=== PATIENT | male | born 1940 ===

== ENCOUNTER 2024-10-13 14:50 | Inpatient (IN) | payer OTHER, SELFPAY ==
[2024-10-13] VITALS (11 sets, daily range): BP systolic 111–139; BP diastolic 70–97; BMI 28.2; BMI 28.5
[2024-10-13 10:33] LABS: Hematocrit 39.7 % (39.0-52.0); Hemoglobin 13.1 g/dL (13.0-18.0); Mean Corp Hgb Conc. 33.0 g/dL (33.0-37.0); Mean Corpuscular Volume 85.6 fL (80.0-94.0); Nucleated Red Blood Cells % 0 % (-); Platelet Count 168 10^3/uL (130-400); Red Cell Dist. Width 14.4 % (11.5-14.5)
[2024-10-13 10:52] LABS: ALT (SGPT) 20 U/L (0-50); AST (SGOT) 23 U/L (17-59); Albumin 4.4 g/dl (3.5-5.0); Alkaline Phosphatase 66 U/L (38-126); Blood Urea Nitrogen 19 mg/dl (9-20); Calcium 9.7 mg/dl (8.4-10.2); Carbon Dioxide 22 mmol/L (22-30); Chloride 112 mmol/L (98-107); Estimated Creatinine Clearance 61 ml/min; Glucose 97 mg/dl (70-99); Potassium 4.3 mmol/L (3.5-5.1); Sodium 141 mmol/L (135-145); Total Protein 7.3 g/dl (6.3-8.2); eGFR > 60.00
[2024-10-13 10:53] LABS: INR 1.01; PT 13.8 Sec (11.4-14.6)
--- NOTE | 2024-10-13 11:04 | ED.GENMED ---
History of Present Illness
General
Chief Complaint: Cardiac Symptoms
Source: patient and family (Daughter)
Exam Limitations: none
Time Seen by Provider: 10/13/24 10:53
History of Present Illness
History of Present Illness:
84-year-old male some dry cough increase shortness of breath over the last week. Much worse the last few nights. Some intermittent chest pressure also. Symptoms are minimal currently. No weight change.
Past History
Past History
ED Past Medical History: Arrthythmia, HTN and Hypercholesterolemia
Phy Exam
Physical Exam
Physical Exam:
GENERAL: Alert and oriented in no apparent distress
EYE: Orbits normal.
NECK: Supple, no thyroid palpable
ENT: Pharynx without erythema
CARDIAC: Irregular irregular no murmur
LUNGS: Rales in both bases. No wheezing. No respiratory distress
ABDOMEN: Soft, without focal tenderness or distention
NEUROLOGICAL: Alert and oriented , grossly non-focal
SKIN: Warm and dry, no rash or lesion, no discoloration, skin intact.
MUSCULOSKELETAL: No edema,no deformity.Good color
PSYCH: Normal and appropriate interaction.
Course
Orders/Labs/Results
Orders:
Orders
10/13/24 09:51
Electrocardiogram (*1) Urgent
Reason for Study: Chest Pain
EKG- Treatment ONCE
10/13/24 10:24
Complete Blood Count/With Diff Urgent
Comprehensive Metabolic Panel Urgent
Pro-BNP [NT-proBNP] Urgent
Prothrombin Time Urgent
Troponin I Urgent
10/13/24 11:16
CXR2 [CR Chest - 2 Views ] Urgent
Comment:
Reason For Exam: sob
10/13/24 12:01
Furosemide [Lasix] 40 mg IV NOW STA
Abnormal Lab Results
10/13/24
10:24
RBC 4.64 L 10^6/uL
(4.70-6.10)
Lymphocytes % 20.1 L %
(20.5-51.1)
Monocytes % 9.6 H %
(1.7-9.3)
Chloride 112 H mmol/L
(98-107)
Total Bilirubin 1.5 H mg/dl
(0.2-1.3)
Troponin I 0.057 H* ng/ml
10/13/24 10:24
10/13/24 10:24
Vital Signs
Initial and Last Documented VS:
Initial Vital Signs
Temp Pulse Resp BP Pulse Ox
98.4 F 53 16 128/94 95
10/13/24 09:56 10/13/24 09:56 10/13/24 09:56 10/13/24 09:56 10/13/24 09:56
Last Documented Vital Signs
Temp Pulse Resp BP Pulse Ox
98.4 F 82 24 121/88 95
10/13/24 09:56 10/13/24 13:00 10/13/24 13:00 10/13/24 13:00 10/13/24 13:00
*Radiology
Radiology exam reviewed: radiology read reviewed (Increased vascular congestion. Small effusion. Pulmonary vasculature top normal)
*Pulse Oximetry
SaO2: 94
Oxygen Mode of Delivery: Room air
Patient hypoxic: no
*EKG
Interpreted by ED Provider?: Yes
Interpretation: abnormal
Comparison EKG: changes noted
Heart Rate: 80
Rate: normal
Rhythm: atrial flutter
[place]: left axis deviation
Interval: normal interval
QRS Pattern: poor R-wave progression
Ischemia: non-specific ST changes
*Critical Care Note
Total Time (30-74mins, 75-104mins- exclusive of procedures): Not Applicable
ED Attending Note
-
Portions of this chart may have been created with voice recognition software.� Occasional wrong word or��sound alike� substitutions may have occurred due to the inherent limitations of voice recognition software.
Discharge Plan
Departure
Patient Disposition: Admit
Date of Disposition: 10/13/24
Time of Disposition: 12:37
Presentation/result/management discussed w/ accepting MD/DO: Cardiology
Discharge Problem:
CHF, New onset atrial flutter
Prescriptions:
No Action
lisinopril 20 mg tablet
20 mg PO DAILY
amlodipine 5 mg tablet
5 mg PO QPM
tamsulosin 0.4 mg capsule
0.4 mg PO BID
aspirin 81 mg Tablet,Chewable
81 mg PO QPM
metoprolol succinate 25 mg tablet extended release 24 hr
25 mg PO DAILY
omega 7-rsi-aqh-fish oil [Fish Oil] 60-90-500 mg Capsule
1 cap PO DAILY
Referrals:
Tenisha Urrutia MD [Family Provider]
Interventions
Interventions:
*Risk Screen - Suicide Last Done: 10/13/24 10:27
*General Assessment Last Done: 10/13/24 10:25
*Neglect/Abuse Screening Last Done: 10/13/24 10:27
*ED- Fall Risk Assessment Last Done: 10/13/24 10:25
*ED COVID-19 Vaccine History Last Done: 10/13/24 10:25
ED- Pulmonary Assessment Last Done: 10/13/24 10:27
ED- Cardiac Assessment Last Done: 10/13/24 10:27
Discharge Date and Time
Print Language: URUGUAYAN
[2024-10-13 11:07] LABS: Troponin I 0.057 ng/ml
[2024-10-13] MEDS: LASIX 40 MG IV (12:08)
--- NOTE | 2024-10-13 13:03 | W.PN.UPDATE ---
Update Note
Progress Note Update
This note serves as an addendum to the H&P by Kenzie Thompson
�
HPI
84M Non [place] Citizen Wolof speaker, with [place] Citizen speaker Daughter in Law No prior HX at , PMHX Arrhythmia, HTN and Hypercholesterolemia seen at ER:
- reports dry cough
- increase shortness of breath over the last week. Much worse the last few nights.
- Some intermittent chest pressure also.
- Symptoms are minimal currently.
- No weight change.
Relevant VS:
10/13/24
09:56 10/13/24
10:19
Temp 98.4 F
Pulse 53 83
Blood pressure 128/94
SaO2 95
Oxygen Mode of Delivery Room air
PE
Gen: no apparent distress
HEENT: anicteric
Neck: supple , Not noticed JVD
Lungs: Rales in both bases
Cor: Irregular irregular no murmur
Abdomen:� Soft, without focal tenderness or distention
GAS APPLIANCE ADJUSTER: AAO3
MS:b/l Jesus Alberto edema
Psych: Appropriate
Relevant Data
10/13/24
10:24
WBC 5.9
Hgb 13.1
Plt Count 168
INR 1.01
Chloride 112 H
BUN 19
Creatinine 0.8
eGFR > 60.00
Total Bilirubin 1.5 H
Troponin I 0.057 H*
Yny-E-Zeiksremvas Pept 5000
CXR
- Right basilar opacification at least in part suggesting small right pleural effusion.
- Minor left basilar opacification suggesting subsegmental atelectasis and/or scarring.
- Pulmonary vascularity at least top normal.
EKG
ATRIAL FLUTTER WITH VARIABLE A-V BLOCK WITH PREMATURE VENTRICULAR OR
ABERRANTLY CONDUCTED COMPLEXES
LEFT AXIS DEVIATION
INCOMPLETE LEFT BUNDLE BLOCK
MINIMAL VOLTAGE CRITERIA FOR LVH, MAY BE NORMAL VARIANT ( Cody product )
NONSPECIFIC T WAVE ABNORMALITY
ABNORMAL ECG
NO PREVIOUS ECGS AVAILABLE
Confirmed by MD MIKY, JIHAN Haque ([id number]) on 10/13/2024 11:17:09 AM
04/29/22 TTE
LVEF 65%
Grade 1 diastolic dysfunction.
Normal right ventricular size and function.
Mild left atrial enlargement.
Normal right atrium.
Estimated pulmonary artery pressure assessment was not possible.
Structurally normal pulmonic valve without significant stenosis or regurgitation.
Normal pericardium without effusion.
Normal aortic root @ 4.0 cm.
IVC not well seen.
NO PRIOR hospitalist admission:
ASSESSMENT & PLAN
Acute HF
Suspect acute diastolic CHF +/_ systolic HF
- last ECHO on records was in 2022
- in A Flutter
- Elevated proBNP
- IV Lasix 40 daily
- c/w PHYSICIANS ASSISTANT Metoprolol XL + Lisinopril
- Daily BMP
- Daily IOs, Wt
- ECHO
- CBC card consulted by ER
A Flutter
- controlled VR on Metoprolol XL
- Likely 2/2 AHF
- Defer AC to Card
- await card evalaution
Elevated TPNI
- suspect NIMI due to acute HF and A Fluuter
- Trend TPNI
- c/w PHYSICIANS ASSISTANT ASA + Statin
- ECHO for WMAL
- await Card evaluation for future ischemic evalautation
Normotensive
Essential HTN
- c/w PHYSICIANS ASSISTANT Amlodipine + Lisinopril
BPH
- on Tamsulosin
DVT Px: LMWH
Full Code
IP TLM
--- NOTE | 2024-10-13 14:09 | HPS.HSE ---
Family Physician
-
Family Physician: Tenisha Urrutia MD
Chief Complaint
-
Worsening SOB, fatigue, cough
History of Present Illness
84 year old male with history of HTN, hypercholesterolemia, CAD, Dilated aortic root, GERD, bilateral knee Osteoarthritis, BPH, who presents with non-productice cough, worsening shortness of breath, chest tightness, intermittent palpitations, poor
sleep and tiredness. He does have trace LE extremity edema at baseline, but daughter reports it may have looked slightly worse earlier today. He is here with daughter in-law who provides most of his medical history.
Denies any history of arrhythmia or heat failure. CAD history from history of abnormal stress test. He denies fever/chills, nausea/vomiting, abdominal or bowel/bladder concerns. He does not check his weight regularly at home, but states that he is
usually around 77kg
Medical History
Past Medical History
Past Medical History: Reports CAD, GERD, HTN, Hypercholesterolemia and Other (BPH, Dilated aortic root, bilateral knee osteoarthritis); Denies Arrhythmia or CHF
Past Surgical History: Reports Other (hernia repair, carpal tunnel repair)
Social History
Tobacco: Non-smoker
Alcohol: Occasional
Living: With Family
Family History
Family History: Not pertinent
Allergies / Home Medications
Allergies reflects when Allergies were last updated in [facility].
Home Medications with original date entered in [facility]
Allergy/Medication List:
Allergies
Allergy/AdvReac Type Severity Reaction Status Date / Time
No Known Allergies Allergy Verified 10/13/24 09:59
Home Medications
amlodipine 5 mg tablet 5 mg PO QPM 10/13/24
aspirin 81 mg chewable tablet 81 mg PO QPM 10/13/24
lisinopril 20 mg tablet 20 mg PO DAILY 10/13/24
metoprolol succinate 25 mg tablet,extended release 24 hr 25 mg PO DAILY 10/13/24
omega 1-edq-rge-fish oil 60 mg-90 mg-500 mg capsule (Fish Oil) 1 cap PO DAILY 10/13/24
tamsulosin 0.4 mg capsule 0.4 mg PO BID 10/13/24
Review of Systems
-
History Source: Patient and Family (daughter za)
Constitutional: Reports Fatigue; Denies Fever, Weight Gain, Night Sweats or Chills
Respiratory: Reports Cough and Trouble Breathing; Denies Hemoptysis
Cardiac: Reports Palpitations (intermittent) and Other (chest tightness); Denies Chest Pain or Diaphoresis
Abdomen/GI: Denies Abdominal Pain, Nausea, Vomiting or Diarrhea
: Denies Dysuria, Difficulty Voiding or Bleeding
Musculoskeletal: Reports Edema (lower extremity)
Physical Exam
Vital Signs
Vital Signs
Temp Pulse Resp BP Pulse Ox
98.4 F 82 24 121/88 95
10/13/24 09:56 10/13/24 13:00 10/13/24 13:00 10/13/24 13:00 10/13/24 13:00
Physical Exam
General: Well Developed, Well Nourished, No Apparent Distress, Comfortable and Conversant; No Fever or Sweats
HEENT: NormoCephalic, Anicteric, Moist mucous membranes and Atraumatic
Respiratory: Crackles (bibasilar) and Non Labored Respirations; No Wheezes, Rales or Rhonchi
Cardiac: S1/S2, Irregular Rhythm and Other (regular rate); No Murmur, Rub or Gallop
GI: Soft, Non Tender, Non Distended and Normal Bowel Sounds
Genito-urinary: No costovertebral tender
Musculoskeletal: No Clubbing, No Cyanosis and No Edema
Skin: Warm and Dry
Neuro: Awake, Alert and Oriented
Psych: Calm
Laboratory Results
-
10/13/24 10:24
10/13/24 10:24
Laboratory Results
PT 13.8 Sec (11.4-14.6) 10/13/24 10:24
INR 1.01 10/13/24 10:24
Total Bilirubin 1.5 mg/dl (0.2-1.3) H 10/13/24 10:24
AST 23 U/L (17-59) 10/13/24 10:24
ALT 20 U/L (0-50) 10/13/24 10:24
Alkaline Phosphatase 66 U/L (38-126) 10/13/24 10:24
Troponin I 0.057 ng/ml H* 10/13/24 10:24
Impression/Plan
-
IMPRESSION:
84 year old male with history of HTN, hypercholesterolemia, CAD, Dilated aortic root, GERD, bilateral knee Osteoarthritis, BPH, who presents with acute CHF exacerbation and new onset Afib/aflutter
PLAN:
Acute CHF exacerbation:
proBNP 5000
- Pt received lasix 40mg IV lasix in Ed with good response. Continue 40mg lasix daily
- Most recent echo in april 2022 with EF 65% with grade 1 diastolic dysfunction. Repeat echo
- Admit to tele
- Track IandOs, daily weights, fluid restriction
- Cards consult
New onset afib/aflutter:
- Rate controlled. Pt on metoprolol sux 25 daily.
- Check TSH
- Unclear if due to CHF exacerbation if CHF exacerbation caused by arrhythmia
- Cards consult
- Case management consult for tentative Eliquis pricing. [id number]
Non-ischemic myocardial injury:
Secondary to CHF exacerbation
- Trop 0.057
- Trend trop
- Repeat EKG
Dilated aortic root:
- Per pt, stable at 4.5cm. Will repeat echo
Essential hypertension:
- Continue home antihypertensives: Metoprolol, Amlodipine, Lisinopril
CAD:
Hypercholesterolemia:
History of abnormal stress test:
- Continue Atorvastatin, Asp 81
BPH:
- No acute retention. continue Tamsulosin BID
Bilateral knee osteoarthritis:
- Stable
GERD
DVT ppx: Lovenox
Code status: full Code
[2024-10-13 15:38] LABS: Troponin I 0.059 ng/ml
--- NOTE | 2024-10-13 17:33 | PTCARENOTE ---
pt brought up from the Ed to this RN. pt is a standing scale daily wt. walked into the room from the stretcher with no assistive devices and daughter is staying at the bedside for translation.
[2024-10-13] MEDS: NORVASC 5 MG PO (18:33)
[2024-10-13] MEDS: LOW STRENGTH ASPIRIN 81 MG PO (18:33)
[2024-10-13] MEDS: LOVENOX 40 MG SC (18:34)
[2024-10-13] MEDS: FLOMAX 0.4 MG PO (20:12)
[2024-10-13] MEDS: LIPITOR 20 MG PO (21:15)
[2024-10-13 21:38] LABS: Troponin I 0.061 ng/ml
[2024-10-14] VITALS (9 sets, daily range): BP systolic 90–125; BP diastolic 53–83; PULSE 62–65; O2SAT 95–96; BMI 28.4
[2024-10-14 03:29] LABS: Hematocrit 38.8 % (39.0-52.0); Hemoglobin 13.0 g/dL (13.0-18.0); Mean Corp Hgb Conc. 33.5 g/dL (33.0-37.0); Mean Corpuscular Volume 85.1 fL (80.0-94.0); Platelet Count 150 10^3/uL (130-400); Red Cell Dist. Width 14.5 % (11.5-14.5)
[2024-10-14 03:54] LABS: Blood Urea Nitrogen 21 mg/dl (9-20); Calcium 9.3 mg/dl (8.4-10.2); Carbon Dioxide 23 mmol/L (22-30); Chloride 111 mmol/L (98-107); Estimated Creatinine Clearance 61 ml/min; Glucose 92 mg/dl (70-99); Magnesium 2.0 mg/dl (1.6-2.3); Potassium 3.8 mmol/L (3.5-5.1); Sodium 141 mmol/L (135-145); eGFR > 60.00
[2024-10-14 04:33] LABS: Troponin I 0.063 ng/ml
[2024-10-14 07:22] LABS: Troponin I 0.061 ng/ml
--- NOTE | 2024-10-14 07:25 | W.PN.HOSP.TC ---
Today's Communication/Plan
-
Pending echocardiogram
Assessment / Plan
Assessment / Plan
Impression:
84 year old male with history of HTN, hypercholesterolemia, CAD, Dilated aortic root, GERD, bilateral knee Osteoarthritis, BPH, who presents with non-productice cough, worsening shortness of breath, chest tightness, intermittent palpitations, poor
sleep and tiredness. Noted to have a flutter in the ER and admitted for CHF exacerbation.
Seen by cardiology.
Patient received IV Lasix, and started on Eliquis by cardiology, metoprolol XL.
Heart rate improved
Assessment/plan:
Acute CHF Exacerbation:
Patient has acute on chronic diastolic congestive heart failure
Patient presented with shortness of breath.
proBNP 5000
Troponin level is 0.061
Continue IV diuresing in form of Lasix 40 mg twice daily
Daily weight.
Strict I's and O's.
Consulted cardiology.
Most recent echo in april 2022 with EF 65% with grade 1 diastolic dysfunction. Repeat echo
New onset afib/aflutter:
- Rate controlled. Pt on metoprolol sux 25 daily.
-TSH 1.86
- Continue metoprolol and started Eliquis
Non-ischemic myocardial injury:
Secondary to CHF exacerbation
- Trop 0.057
- Trend trop
Troponins
10/13/24 10/13/24 10/14/24
15:08 21:01 03:22
Troponin I 0.059 H* 0.061 H* 0.063 H*
10/14/24
06:42
Troponin I 0.061 H*
Dilated aortic root:
- Per pt, stable at 4.5cm. Will repeat echo
Essential hypertension:
- Continue home antihypertensives: Metoprolol, Amlodipine, Lisinopril
CAD:
Hypercholesterolemia:
History of abnormal stress test:
- Continue Atorvastatin, continue aspirin since we started Eliquis
BPH:
- No acute retention. continue Tamsulosin BID
Bilateral knee osteoarthritis:
- Stable
CODE STATUS: Full code
DVT prophylaxis: Lovenox
Diet: Regular diet
Family communication: Discussed with [id number] at bedside.
Disposition: Pending echo
Total time spent on today's encounter was 65 minutes which included time spent in counseling the patient/family regarding diagnosis and treatment plan as listed above, goals of care, and symptom management. Case was discussed with nursing staff,
specialists, and care coordinators/case management. All labs and imaging personally reviewed by me. Remainder the time spent in detailed review of previous records, lab data, imaging, and other medical provider documentation.
Anticipated Discharge: Within 24 hours
Subjective/Interval History
-
Date of Service: October 14, 2024
Patient seen and examined at bedside, denies any chest pain or shortness of breath, no abdominal pain, no nausea, no vomiting, no diarrhea or constipation.
Objective Data
-
Labs:
Laboratory Results
10/14/24
03:22
WBC 5.7
Hgb 13.0
Hct 38.8 L
Plt Count 150
Sodium 141
Potassium 3.8
Chloride 111 H
Carbon Dioxide 23
BUN 21 H
Creatinine 0.8
Glucose 92
Calcium 9.3
Vital Signs:
Vital Signs
Temp Pulse Resp BP Pulse Ox
98.4 F 77 18 123/82 94
10/14/24 03:14 10/14/24 03:14 10/14/24 03:14 10/14/24 03:14 10/14/24 03:14
I&O
10/13/24 10/14/24 10/15/24
06:59 06:59 06:59
Intake Total 480 / 480
Balance 480 / 480
Physical Exam
-
General: Well Developed, Well Nourished, No Apparent Distress and Comfortable
HEENT: Normocephalic, Atraumatic, Moist Mucous Membranes, No Ptosis, PERRLA and Nose Appears Normal
Respiratory: Clear to Auscultation and Non Labored Respirations
Cardiac: Regular Rhythm and S1/S2
Breast: Deferred by me
GI: Soft, Nontender, Nondistended and Normal Bowel Sounds
Genito-urinary: No Costovertebral Tender
Musculoskeletal: No Clubbing, No Cyanosis and No Edema
Skin: Warm
Neuro: Awake, Alert, Oriented, AO x 3 and No Motor Deficits
Psych: Calm
Data Reviewed
-
Diagnostic Radiology: Image personally visualized and interpreted and Report Reviewed by me
CT Scan: Image personally visualized and interpreted and Report Reviewed by me
Ultrasound: Image personally visualized and interpreted and Report Reviewed by me
MRI: Image personally visualized and interpreted and Report Reviewed by me
Medical Tests (Nuc Med, Echo etc): Image personally visualized and interpreted and Report Reviewed by me
Labs: Labs Reviewed by me
Old Records: Reviewed
[2024-10-14] MEDS: FLOMAX 0.4 MG PO ×2 (07:59→20:10)
[2024-10-14] MEDS: TOPROL XL 25 MG PO (07:59)
[2024-10-14] MEDS: ZESTRIL 20 MG PO (08:01)
[2024-10-14] MEDS: LASIX 40 MG IV ×2 (08:02→17:15)
--- NOTE | 2024-10-14 08:43 | CON.CAR ---
Addendum entered and electronically signed by Gilberto Ennis MD 10/14/24 12:09:
I saw and evaluated the patient, and I provided the substantive portion of the medical decision making.
I reviewed and agree with the note by Surekha Simon and it accurately reflects our care.
I personally performed the medical decision making of the this encounter and my assessment and plan is below:
Patient is Azeri speaking but refused official court interpreter rather he wished as to use his daughter. 84-year-old gentleman with a past medical history of hypertension, BPH who presented with increased shortness of breath and palpitations for a week. He was
noted to be in new atrial flutter. Currently, he is feeling much improved and would like to go home. On exam, JVP is still elevated at about 12 cm of H2O, irregularly irregular rate and rhythm, lungs were clear to auscultation bilaterally and
trace edema bilaterally. EKG showed atrial flutter with variable block, left anterior fascicular block.
Heart failure unknown EF: Continue IV diuresis with intensive monitoring. Suspect arrhythmia as the etiology. Will check echocardiogram. GDMT as indicated.
Atrial flutter: Persistent: Rate controlled on current medications. Likely the etiology of heart failure. Will arrange for KASSIDY cardioversion tomorrow once volume status is optimized. Will start Eliquis 5 mg twice a day. Case management consult
placed. CHADS2 Vasc 4, do not believe CAD is truly present. Will request records. Regardless DOAC indicated.
Hypertension: Stable
Abnormal troponin: Nonischemic myocardial injury in the setting of CHF and atrial arrhythmia.
Will follow. Likely discharge tomorrow after procedure.
persistent
For TIME:
I saw and evaluated the patient in coordination with the advanced practice provider [ ] and agree with their note.
I spent a total of [ ] minutes (including overlapping time with [ ]. I [did/did not] spend more than half of the total time of the visit.
Total visit time [ ] (total attending time and [ ] WEB CONTENT COORDINATOR unique time).
Comment:
Original Note:
Consultation
Consultation Request
Date/Time Consultation Requested: 10/13/24 1727
Date/Time Consultation Performed: 10/14/24 0843
Requesting Provider: Kenzie Thompson
Performing Provider: Surekha COREAS for Dr. Ennis
Reason for Consultation: CHF
Medical History
-
Chief Complaint: SOB
History of Present Illness:
84 y/o male (cardiology patient of [facility]- wants to follow with us after d/c) with hypertension, BPH, suspected CAD with hx abnormal stress test per chart- never cathed, and most recent stress 2023 normal, dilated aortic root (4.5 cm per chart),
dyslipidemia, GERD who is here for SOB, cough, fatigue, chest tightness, and palpitations x 1 week. Symptoms worse with exertion and bending. He is admitted for CHF and new atrial flutter. He is feeling better with diuresis. No distress at the time
of my assessment. Daughter is at bedside and helps with translation as patient is not Serbian speaking.
Past Medical History
Past Medical History: CAD, GERD, HTN, Hypercholesterolemia and Other (as above)
Social History
Tobacco: Non-Smoker
Family History
Family History: Reviewed & Not Pertinent
Allergies / Home Medications
Allergy/AdvReac Type Severity Reaction Status Date / Time
No Known Allergies Allergy Verified 10/13/24 09:59
�Medication �Instructions �Recorded �Confirmed �Type
amlodipine 5 mg tablet 5 mg PO QPM Blood Pressure 10/13/24 10/13/24 History
aspirin 81 mg chewable tablet 81 mg PO QPM Blood Clot 10/13/24 10/13/24 History
Prevention/Tx
atorvastatin 20 mg tablet (Lipitor) 20 mg PO HS High Cholesterol 10/13/24 10/13/24 History
lisinopril 20 mg tablet 20 mg PO DAILY Blood Pressure 10/13/24 10/13/24 History
metoprolol succinate 25 mg 25 mg PO DAILY Blood Pressure 10/13/24 10/13/24 History
tablet,extended release 24 hr
omega 9-lkg-jgr-fish oil 60 mg-90 1 cap PO DAILY Supplement 10/13/24 10/13/24 History
mg-500 mg capsule (Fish Oil)
tamsulosin 0.4 mg capsule 0.4 mg PO BID Urinary Issue 10/13/24 10/13/24 History
Review of Systems
-
History Source: Patient
All other systems: Negative unless noted
Constitutional: Fatigue
Respiratory: Cough and Trouble Breathing
Cardiac: Chest Pain
Physical Exam
Vital Signs
Temp Pulse Resp BP Pulse Ox
97.9 F 86 18 119/83 93
10/14/24 07:00 10/14/24 07:59 10/14/24 07:00 10/14/24 07:59 10/14/24 08:08
Lab Results
10/14/24 03:22
10/14/24 03:22
Troponin I 0.061 ng/ml H* 10/14/24 06:42
Tlc-R-Vteslcltmnx Pept 5000 pg/ml 10/13/24 10:24
Physical Exam
General: Well Developed, Well Nourished and No Apparent Distress
HEENT: Normocephalic and Anicteric
Respiratory: Clear and Non Labored Respirations
Cardiac: Irregular Rhythm and Peripheral Edema (mild BLE edema)
Skin: Warm and Dry
Neuro: Awake and Alert
Psych: Calm
Impression / Plan
-
Atrial flutter, type and onset unknown:
-new diagnosis. Rate-controlled. Continue metoprolol.
-[id number] score is 5 for age, hypertension, suspected CAD per OP chart, and CHF. Eliquis is being priced- Will start Eliquis 5 mg PO BID. Stop aspirin.
-check echo and if normal EF, plan for KASSIDY and CV in AM after more diuresis
Acute HF, type unknown:
-last echo showed preserved EF- update echo today
-increase IV lasix to BID. This requires intensive monitoring. Will give some potassium as well.
Abnormal troponin:
-suspected acute, non-ischemic myocardial injury in setting of CHF
-checking echo
Hypertension:
-stable
-continue meds and monitor
Suspected CAD, hx abnormal stress test per OP chart:
-continue statin, stop ASA with Eliquis
Data Reviewed
-
EKG: Tracing Personally Visualized and interpreted (Aflutter 87 BPM, PVC's)
Radiology: Report Reviewed by me (CXR: Right basilar opacification at least in part suggesting small right pleural effusion. Minor left basilar opacification suggesting subsegmental atelectasis and/or scarring. Pulmonary vascularity at least top
normal.)
Medical Tests (Nuc Med, Echo etc): Report Reviewed by me (Echo 04/29/22: EF 65 %. Grade 1 diastolic dysfunction. Normal aortic root @ 4.0 cm. )
Labs: Labs Reviewed by me
--- NOTE | 2024-10-14 10:24 | PTOTSP ---
Pt admitted with CHF and afib/aflutter. Presents to OT at independent level with basic self care, transfers and functional mobility in room and bathroom without AD. Provided education (through daughter in law's translation) in energy conservation
and work simplification strategies. No further skilled OT indicated at this time.
[2024-10-14] MEDS: KCL 40 MEQ PO (11:28)
[2024-10-14] MEDS: ELIQUIS 5 MG PO ×2 (11:29→20:10)
--- NOTE | 2024-10-14 13:14 | CM ---
Addendum entered by Pernell Roman 10/14/24 14:46:
ANA M Gimenez spoke to [facility] who said it would be zero copy for 60 tables BID for 30 days. Medical Team aware now to send over the script eletronically when it is needed.
Addendum entered by Pernell Roman 10/14/24 14:07:
Initial Assessment Completed by ANA M Gimenez.
Patient lives in a single 2 story home with his son, daughter in law Hannah (who is present today), their 2 childrend, and his . There is 1 step to enter in from the garage and about 20 steps inside.
Patient uses no DME or respiratory devices at home nor has he been to a SNF or had Home Care Services of any type.
PCP: Dr. Tenisha Urrutia and uses [facility]: [address] [place] [address]; [phone]
Medical Team asked that we find out if Eliquis 5mg is covered under his insurance. Dtr-in Law said that he has never been on this medication. ANA M Gimenez awaiting a script.
Original Note:
Patient was having an Echo so will return shorty.
[2024-10-14] MEDS: NORVASC PO (17:06)
--- NOTE | 2024-10-14 17:13 | PTCARENOTE ---
BP at 1500 vitals was 90/52, upon recheck 106/68. Pt scheduled to get standing dose of norvasc and 40 lasix at this time. This RN made MD aware, MD asking to give lasix and hold norvasc. See MAR, no new orders at this time.
[2024-10-14] MEDS: LIPITOR 20 MG PO (20:10)
[2024-10-15 03:21] VITALS: BP 103/62
[2024-10-15 06:00] VITALS: BMI 27.9
[2024-10-15 07:02] VITALS: BP 121/75
[2024-10-15] MEDS: ELIQUIS 5 MG PO (08:02)
[2024-10-15] MEDS: ZESTRIL 20 MG PO (08:02)
[2024-10-15] MEDS: TOPROL XL PO (08:03)
[2024-10-15] MEDS: FLOMAX 0.4 MG PO (08:03)
[2024-10-15] MEDS: LASIX 40 MG IV (08:03)
[2024-10-15 08:57] LABS: Blood Urea Nitrogen 29 mg/dl (9-20); Calcium 9.3 mg/dl (8.4-10.2); Carbon Dioxide 26 mmol/L (22-30); Chloride 107 mmol/L (98-107); Estimated Creatinine Clearance 49 ml/min; Glucose 95 mg/dl (70-99); Potassium 3.9 mmol/L (3.5-5.1); Sodium 140 mmol/L (135-145); eGFR > 60.00
[2024-10-15 09:22] LABS: Hematocrit 42.3 % (39.0-52.0); Hemoglobin 14.1 g/dL (13.0-18.0); Mean Corp Hgb Conc. 33.3 g/dL (33.0-37.0); Mean Corpuscular Volume 85.5 fL (80.0-94.0); Platelet Count 185 10^3/uL (130-400); Red Cell Dist. Width 14.4 % (11.5-14.5)
--- NOTE | 2024-10-15 09:39 | W.PN.HOSP.TC ---
Today's Communication/Plan
-
Cardioversion today.
Discharge home if cleared by cardio
Assessment / Plan
Assessment / Plan
Impression:
84 year old male with history of HTN, hypercholesterolemia, CAD, Dilated aortic root, GERD, bilateral knee Osteoarthritis, BPH, who presents with non-productice cough, worsening shortness of breath, chest tightness, intermittent palpitations, poor
sleep and tiredness. Noted to have a flutter in the ER and admitted for CHF exacerbation.
Seen by cardiology.
Patient received IV Lasix, and started on Eliquis by cardiology, metoprolol XL.
Heart rate improved
Send cardiology recommended cardioversion
Assessment/plan:
Acute CHF Exacerbation:
Patient has acute on chronic diastolic congestive heart failure
Patient presented with shortness of breath.
proBNP 5000
Troponin level is 0.061
Continue IV diuresing in form of Lasix 40 mg twice daily
Daily weight.
Strict I's and O's.
Consulted cardiology.
Most recent echo in april 2022 with EF 65% with grade 1 diastolic dysfunction. Repeat echo shows:
1. Moderately reduced left ventricular systolic function, ejection fraction estimated to be 38%.
2. Global hypokinesis with slight worsening in the inferolateral wall, this may be overstated as there is significant [id number] variation due to atrial flutter.
3. Mild aortic regurgitation.
4. Dilated ascending aorta (4.4 cm).
5. Compared to the prior on 04/29/2022, LV systolic dysfunction is new. Aortic regurgitation is slightly worse. Dilated ascending aorta now seen
New onset afib/aflutter:
- Rate controlled. Pt on metoprolol sux 25 daily.
-TSH 1.86
- Continue metoprolol and started Eliquis
Non-ischemic myocardial injury:
Secondary to CHF exacerbation
- no chest pain
Troponins
10/13/24 10/13/24 10/14/24
15:08 21:01 03:22
Troponin I 0.059 H* 0.061 H* 0.063 H*
10/14/24
06:42
Troponin I 0.061 H*
Dilated aortic root:
- Per pt, stable at 4.5cm. seen in repeat echo.
Essential hypertension:
- Continue home antihypertensives: Metoprolol, Amlodipine, Lisinopril
CAD:
Hypercholesterolemia:
History of abnormal stress test:
- Continue Atorvastatin, continue aspirin since we started Eliquis
BPH:
- No acute retention. continue Tamsulosin BID
Bilateral knee osteoarthritis:
- Stable
CODE STATUS: Full code
DVT prophylaxis: Lovenox
Diet: Regular diet
Family communication: Discussed with [id number] at bedside.
Disposition: Cardioversion today.
Discharge home if cleared by cardiology.
Total time spent on today's encounter was 65 minutes which included time spent in counseling the patient/family regarding diagnosis and treatment plan as listed above, goals of care, and symptom management. Case was discussed with nursing staff,
specialists, and care coordinators/case management. All labs and imaging personally reviewed by me. Remainder the time spent in detailed review of previous records, lab data, imaging, and other medical provider documentation.
Anticipated Discharge: Within 24 hours
Subjective/Interval History
-
Date of Service: October 15, 2024
Patient seen and examined at bedside, denies any chest pain or shortness of breath, no abdominal pain, no nausea, no vomiting, no diarrhea or constipation.
Objective Data
-
Labs:
Laboratory Results
10/15/24
07:27
WBC 5.7
Hgb 14.1
Hct 42.3
Plt Count 185 D
Sodium 140
Potassium 3.9
Chloride 107
Carbon Dioxide 26
BUN 29 H
Creatinine 1.0
Glucose 95
Calcium 9.3
Vital Signs:
Vital Signs
Temp Pulse Resp BP Pulse Ox
98.2 F 98 16 121/75 92
10/15/24 07:02 10/15/24 08:03 10/15/24 07:02 10/15/24 08:03 10/15/24 07:02
I&O
10/14/24 10/15/24 10/16/24
06:59 06:59 06:59
Intake Total 480 / 480 1130 / 1130
Balance 480 / 480 1130 / 1130
Physical Exam
-
General: Well Developed, Well Nourished, No Apparent Distress and Comfortable
HEENT: Normocephalic, Atraumatic, Moist Mucous Membranes, No Ptosis, PERRLA and Nose Appears Normal
Respiratory: Clear to Auscultation and Non Labored Respirations
Cardiac: S1/S2 and Irregular Rhythm
Breast: Deferred by me
GI: Soft, Nontender, Nondistended and Normal Bowel Sounds
Genito-urinary: No Costovertebral Tender
Musculoskeletal: No Clubbing, No Cyanosis and No Edema
Skin: Warm
Neuro: Awake, Alert, Oriented, AO x 3 and No Motor Deficits
Psych: Calm
--- NOTE | 2024-10-15 09:55 | W.PN.CD ---
Today's Communication / Plan
-
-start farxiga 10mg daily, spironolactone 12.5 mg daily (will need follow up labs in 1/2 weeks), continue lisinoprol (entresto as op if bp allows), continue bb
-labs in 1 an d 2 weeks
f/u with CBC arranged at his request
Impression / Plan
-
Atrial flutter, type and onset unknown:
-new diagnosis. Rate-controlled. Continue metoprolol.
-[id number] score is 5 for age, hypertension, suspected CAD per OP chart, and CHF. Eliquis is being priced- continue Eliquis 5 mg PO BID. Stop aspirin.
-successful cardioversion
Acute HF, reduced EF:
-EF 38%
-stop amlodipine to allow GDMT
-start farxiga 10mg daily, spironolactone 12.5 mg daily (will need follow up labs in 1/2 weeks), continue lisinoprol (entresto as op if bp allows), continue bb
-etiology likely arrhythmia, will plan to update op stress testing.
Abnormal troponin:
-suspected acute, non-ischemic myocardial injury in setting of CHF
Hypertension:
-stable
-changing medications as above
Suspected CAD, hx abnormal stress test per OP chart:
-continue statin, stop ASA with Eliquis
Dilated Aortic root: continue bb,status
Echo:10/14/24
1. Moderately reduced left ventricular systolic function, ejection fraction estimated to be 38%.
2. Global hypokinesis with slight worsening in the inferolateral wall, this may be overstated as there is significant lnqb-uy-bnmi variation due to atrial flutter.
3. Mild aortic regurgitation.
4. Dilated ascending aorta (4.4 cm).
5. Compared to the prior on 04/29/2022, LV systolic dysfunction is new. Aortic regurgitation is slightly worse. Dilated ascending aorta now seen.
Physical Exam
Vital Signs/Labs
Vital Signs
Temp Pulse Resp BP Pulse Ox
98.2 F 98 16 121/75 92
10/15/24 07:02 10/15/24 08:03 10/15/24 07:02 10/15/24 08:03 10/15/24 07:02
10/14/24 10/15/24 10/16/24
06:59 06:59 06:59
Actual Weight 170 lb 12.8 oz 167 lb 11.2 oz
10/15/24 07:27
10/15/24 07:27
PT 13.8 Sec (11.4-14.6) 10/13/24 10:24
INR 1.01 10/13/24 10:24
Magnesium 2.0 mg/dl (1.6-2.3) 10/14/24 03:22
10/13/24
10:24
Adh-F-Omnbcombkrp Pept 5000
LAB Results
10/13/24 10/13/24 10/13/24
10:24 15:08 21:01
Troponin I 0.057 H* 0.059 H* 0.061 H*
10/14/24 10/14/24
03:22 06:42
Troponin I 0.063 H* 0.061 H*
Physical Exam
Constitutional: No acute distress
Cardiovascular: Rhythm & rate is regular, Pedal edema is absent, JVD pressure is normal and Systolic murmur absent
Respiratory: Respiratory effort normal, Lungs clear to auscul., Wheeze Absent, Crackles Absent and Rhonchi Absent
Neuro/Psych: AO x 3
Data Reviewed
-
Date of Service: October 15, 2024
Medical Decision Making: Review of Case with other Provider (Dr Porter, dtr at the bedside )
EKG: Other (sinus)
[2024-10-15 12:45] VITALS: BP 99/64
--- NOTE | 2024-10-15 13:44 | CM ---
CM following re: discharge planning.
Reviewed pt's chart, met with pt and daughter Hannah at bedside.
PT and OT evaluations noted - pt has no skilled PT/OT needs.
CM called [facility] and per [facility] pharmacist their system is down and she cannot check the [facility] for Farxiga and/or Jardiance.
Pt's daughter Hannah stated the her mother is on Farxiga and she has the same insurance as the pt has and Farxiga covers 100%. MD is aware.
Pt's daughter stated that Eliquis harvey checked yesterday and covers 100%. Free Eliquis coupon given to the pt.
Per MD pt is medically stable to be discharged. Both pt and his daughter are aware, expressed their agreement. IMM reviewed, placed on chart, pt has a copy.
D/C plan: home no needs. Daughter to transport.
--- NOTE | 2024-10-15 14:15 | W.DCSUMMARY ---
Discharge Summary
Discharge Data
Date of Admission: 10/13/24
Date of Discharge: 10/15/24
Total time spent discharging patient (in min): 40
-
Pending Results: No
Hospital Course
Hospital course
84 year old male with history of HTN, hypercholesterolemia, CAD, Dilated aortic root, GERD, bilateral knee Osteoarthritis, BPH, who presents with non-productice cough, worsening shortness of breath, chest tightness, intermittent palpitations, poor
sleep and tiredness. Noted to have a flutter in the ER and admitted for CHF exacerbation.
Seen by cardiology.
Patient received IV Lasix, and started on Eliquis by cardiology, metoprolol XL.
Heart rate improved
Send cardiology recommended cardioversion
Patient converted to sinus rhythm.
Patient will be discharged home
Discharge medications as above:
Eliquis 5 bid(new)
Lipitor 20 ( as home dose )
Farxgia 10 daily
Lisinopril 20 ( as home dose )
Metoprolol xl 25 ( as home dose )
Aldactone 12.5 (new)
Lasix 20 mg as needed (new)
DC home norvasc
During hospitalization patient was treated from the following
Acute Systolic CHF Exacerbation:
Patient presented with shortness of breath.
proBNP 5000
Troponin level is 0.061
Continue IV diuresing in form of Lasix 40 mg twice daily
Daily weight.
Strict I's and O's.
Consulted cardiology.
Most recent echo in april 2022 with EF 65% with grade 1 diastolic dysfunction. Repeat echo shows:
1. Moderately reduced left ventricular systolic function, ejection fraction estimated to be 38%.
2. Global hypokinesis with slight worsening in the inferolateral wall, this may be overstated as there is significant wmea-rd-ijlr variation due to atrial flutter.
3. Mild aortic regurgitation.
4. Dilated ascending aorta (4.4 cm).
5. Compared to the prior on 04/29/2022, LV systolic dysfunction is new. Aortic regurgitation is slightly worse. Dilated ascending aorta now seen
10/15
Patient will be discharged home on Aldactone/Lasix prn wt gain/beta-susan/lisinopril
Stress test as outpatient
New onset afib/aflutter:
- Rate controlled. Pt on metoprolol sux 25 daily.
-TSH 1.86
- Continue metoprolol and started Eliquis
10/15
Status post cardioversion.
Continue Eliquis/metoprolol
Non-ischemic myocardial injury:
Secondary to CHF exacerbation
- no chest pain
10/15
Stress test as outpatient
Dilated aortic root:
- Per pt, stable at 4.5cm. seen in repeat echo.
Essential hypertension:
Discontinue amlodipine on discharge.
Metoprolol/lisinopril/Lasix prn/spironolactone
CAD:
Hypercholesterolemia:
History of abnormal stress test:
- Continue Atorvastatin, continue aspirin since we started Eliquis
BPH:
- No acute retention. continue Tamsulosin BID
Bilateral knee osteoarthritis:
- Stable
CODE STATUS: Full code
DVT prophylaxis: Lovenox
Diet: Regular diet
Family communication: Discussed with [id number] at bedside.
Disposition: Discharge home today
Total time spent on today's encounter was 40 minutes which included time spent in counseling the patient/family regarding diagnosis and treatment plan as listed above, goals of care, and symptom management. Case was discussed with nursing staff,
specialists, and care coordinators/case management. All labs and imaging personally reviewed by me. Remainder the time spent in detailed review of previous records, lab data, imaging, and other medical provider documentation.
Anticipated Discharge: Today
Discharge Plan
-
Patient Disposition: Home (Routine Discharge)
Discharge Diagnosis/Procedures: Acute systolic CHF.
New onset atrial flutter
Diet: Low Sodium and 2 Gram Sodium
Activity: As tolerated
Referrals:
Surekha Simon CRNP [[employer]ified Professional Personl, Cardiology] - 10/29/24 8:40 am
Tenisha Urrutia MD [Family Provider]
Additional Discharge Medication Instructions: lasix 20 mg po as needed for weight gain
Prescriptions:
New
spironolactone 25 mg Tablet
12.5 mg PO DAILY Qty: 30 0RF
Eliquis 5 mg Tablet
5 mg PO BID 30 Days Qty: 60 0RF
dapagliflozin propanediol 10 mg Tablet
10 mg PO DAILY Qty: 30 0RF
furosemide [Lasix] 20 mg tablet
20 mg PO PRN PRN (Reason: Weight gain > 3 Lb) Qty: 30 0RF
Continued
lisinopril 20 mg tablet
20 mg PO DAILY
tamsulosin 0.4 mg capsule
0.4 mg PO BID
metoprolol succinate 25 mg tablet extended release 24 hr
25 mg PO DAILY
atorvastatin [Lipitor] 20 mg Tablet
20 mg PO HS
Discontinued
amlodipine 5 mg tablet
5 mg PO QPM
aspirin 81 mg Tablet,Chewable
81 mg PO QPM
omega 2-qbx-oay-fish oil [Fish Oil] 60-90-500 mg Capsule
1 cap PO DAILY
Discharge Orders:
Discharge Patient (As Directed); Ordered 10/15/24
Ordered By: Indira Porter
Discharge Date and Time
Print Language: IRISH
[2024-10-15 14:51] VITALS: BP 91/58
--- NOTE | 2024-10-15 17:15 | ITS.CL.CARDI ---
Nurse Anesthesia Program Director - Cardioversion
Cardioversion
Procedure Report:
Date of Procedure: 10/15/24
Procedure: Cardioversion
Indication: Symptomatic atrial flutter
Performing Physician: Deirdre Mg DO [facility]
Anticoagulation: Eliquis
Preprocedure transesophageal echocardiogram without left atrial Penders thrombus. Please see official report for full details
Technique: The patient was brought to the holding area. Signed informed consent was obtained with daughter at bedside using [employer] reviewer [email or web address], [id number]. A time out was called and performed. The patient was anesthetized by the anesthesia
service. Transesophageal echocardiogram without left atrial appendage thrombus. R2 pads were placed anteriorly and posteriorly. A 150 J synchronized biphasic shock restored normal sinus rhythm without significant bradycardia. Post procedure EKG
sinus rhythm with first-degree AV block and occasional PVCs. LVH by voltage. QTc 506 ms.
Conclusion: Uncomplicated cardioversion from atrial fibrillation to sinus rhythm.
Recommendation: Routine post cardioversion care. Continue [facility]cfp anticoagulation.
== END 2024-10-15 16:12 | disposition home or self-care (01) | DRG 291 ==
LOC: 2 NORTH 14:50
PROVIDERS: Emergency Medicine; Internal Medicine Cardiovascular Disease; Registered Nurse; Student in an Organized Health Care Education/Training Program; ADMITTING PHYSICIAN Internal Medicine; ATTENDING PHYSICIAN General Practice; CONSULT PHYSICIAN Internal Medicine Cardiovascular Disease; EMERGENCY PHYSICIAN Emergency Medicine; FAMILY PHYSICIAN Family Medicine
PROC: 5A2204Z Restoration of Cardiac Rhythm, Single (ICD-10-PCS; 2024-10-15)
PROC: B24BZZ4 Ultrasonography of Heart with Aorta, Transesophageal (ICD-10-PCS; 2024-10-15)
DX: I11.0 Hypertensive heart disease with heart failure (principal); I50.23 Acute on chronic systolic (congestive) heart failure; I48.92 Unspecified atrial flutter; E78.00 Pure hypercholesterolemia, unspecified; N40.0 Benign prostatic hyperplasia without lower urinary tract symptoms; I48.91 Unspecified atrial fibrillation; I35.1 Nonrheumatic aortic (valve) insufficiency; I25.10 Atherosclerotic heart disease of native coronary artery without angina pectoris; K21.9 Gastro-esophageal reflux disease without esophagitis; M17.0 Bilateral primary osteoarthritis of knee; I77.810 Thoracic aortic ectasia; I5A Non-ischemic myocardial injury (non-traumatic); Z60.3 Acculturation difficulty; Z79.82 Long term (current) use of aspirin; Z79.01 Long term (current) use of anticoagulants
CPT/HCPCS: 71046; 80048; 80053; 83735; 83880; 84443; 84484; 85025; 85027; 85610; 92960; 93005; 93306; 93312; 93320; 93325; 96374; 97162; 97166; 99285

== ENCOUNTER → 2024-11-17 11:02 | Outpatient (REF) | payer OTHER, SELFPAY | LOC: HWRCS 11:02 | PROVIDERS: ATTENDING PHYSICIAN Nurse Practitioner; FAMILY PHYSICIAN Family Medicine | DX: I42.9 Cardiomyopathy, unspecified (principal) | CPT/HCPCS: 78452; 93017; A9500; J2785 ==